=== PATIENT | female | born 2005 | race Caucasian/White ===

== ENCOUNTER 2025-05-26 00:51 | Emergency (ER) | payer MEDICAID ==
[~2025-05-26] VITALS: Ht 154.9 cm; Wt 68.2 kg
--- NOTE | 2025-05-26 01:04 | Physician Documentation ---
History of Present Illness ~ Stated Complaint: MED CLEARANCE Time Seen by MD: 01:00 OK to notify your PCP?: Yes Source: police, RN/MD, RN notes reviewed Mode of Arrival: Police Exam Limitations: clinical condition HPI Patient arrives screaming to the ER police at bedside for 5150. She was at a bar drinking. Apparently she tried to cut herself multiple locations inner thighs and legs. Tetanus is unknown. Patient was paranoid yelling at people. Started to run in some very bushes and has multiple scratches. Police brought her in she is requiring restraints fighting staff and spreading. Medication Reconciliation Allergies: Coded Allergies: No Known Allergies (Unverified , 05/26/25) Past Medical History Other Past Medical History: Unknown medical history unknown psychiatric history Alcohol Use: Heavy Unable to obtain complete PMH: altered mental status Review of Systems ROS Unable to evaluate Unable to obtain complete ROS: altered mental status Physical Exam Vital Signs: RN Vital Signs have been reviewed: Yes Physical Exam General: The patient is appearing and is in severe distress, and danger to self. Screaming, spitting at staff, smell of alcohol on breath Skin: Brooten, warm and dry with no cuts on her legs. HEENT: Head was normocephalic and atraumatic. Eyes - pupils are at 3 mm reactive. Dysconjugate gaze. Conjunctivae were nonicteric. The mouth and oropharynx were clear with moist mucous membranes. There were no pharyngeal exudates or erythema. Neck: Supple and nontender. There was no jugular venous distention, lymphadenopathy, thyromegaly or masses. Chest: Clear to auscultation bilaterally without wheezes, rales or rhonchi. No accessory muscle use. No dullness to percussion. Heart: Rate regular and rhythmic. S1, S2. No murmurs. Palpation of the chest wall was normal. No rubs or thrills. Abdomen: Soft, nontender and nondistended. Positive bowel sounds. No guarding or rebound. No hepatosplenomegaly or palpable masses. Extremities: 3 large multiple scratches/laceration on legs. Left thigh has three superficial scratches measuring at 25 cm each. Non suturable. Multiple scratch parks bilaterally lower extremities greater than the upper extremities all superficial Neurologic: Motorcensory in tact. Psychologic: In a frantic psychologic state. Danger to self and others. Progress Progress Note At noon patient is medically cleared for mental health treatment transport and evaluation. Results/Orders Reviewed/noted all lab results: Yes Results/Orders Orders - INEZ WATSON MD Med Rec (05/26/25 01:04) 1799.11 (05/26/25 01:04) Behavioral Restraints (05/26/25 01:04) Close Observation Level (05/26/25 01:04) Covid19 Binax Poc Result Entry (05/26/25 01:04) Substance Use Navigator (05/26/25 01:04) Regular Diet (05/26/25 Breakfast) Potassium Cl Sr Tablet (K-Dur Tablet) (05/26/25 06:40) Magnesium Oxide Tablet (Mag-Ox 400mg Tab (05/26/25 06:40) MG (05/26/25 06:36) Completed Orders - INEZ WATSON MD Diphenhydramine Inj (Benadryl Inj.) (05/26/25 01:00) Haloperidol Lact. (Haldol) (05/26/25 01:00) Midazolam 1 Mg/Ml 5ml Inj (Versed 1 Mg/M (05/26/25 01:05) Cbc/Diff (05/26/25 01:04) Hcg, Ur Ql (05/26/25 01:04) Drug Screen, Urine (05/26/25 01:04) Ethanol (05/26/25 01:04) TSH (05/26/25 01:04) BMP (05/26/25 01:04) Midazolam 5 Mg/Ml 2ml Inj (Versed 5 Mg/M (05/26/25 01:10) Ua With Microscopic (05/26/25 01:49) Medications Received in ER Medications (Trade) Dose Ordered Sig/Zeeshan Route PRN Reason Start Time Stop Time Status Last Admin Dose Admin (Benadryl inj.) 50 mg ONCE ONCE IM 05/26/25 01:00 05/26/25 01:01 DC 05/26/25 01:15 50 MG (Haldol) 10 mg ONCE ONCE IM 05/26/25 01:00 05/26/25 01:11 DC 05/26/25 01:15 10 MG (Versed 5 MG/ML 2ML inj) 10 mg ONCE ONCE IV 05/26/25 01:10 05/26/25 01:11 DC 05/26/25 01:15 10 MG Vital Signs 05/26/25 05/26/25 05/26/25 01:52 02:00 05:40 Temp 98.2 Pulse 84 70 Resp 16 16 18 B/P (MAP) 106/53 128/80 (96) Pulse Ox 99 99 Laboratory Tests Test 05/26/25 01:38 05/26/25 01:44 05/26/25 01:49 SARS-CoV-2 Antigen (Rapid) Negative White Blood Count 10.9 Red Blood Count 4.54 Hemoglobin 14.2 Hematocrit 42.3 Mean Corpuscular Volume 93.3 Mean Corpuscular Hemoglobin 31.3 H Mean Corpuscular Hemoglobin Concent 33.6 Red Cell Distribution Width 13.4 Platelet Count 417 Mean Platelet Volume 7.2 L Neutrophils (%) (Auto) 81.6 H Lymphocytes (%) (Auto) 11.7 L Monocytes (%) (Auto) 3.5 Eosinophils (%) (Auto) 2.5 Basophils (%) (Auto) 0.7 Neutrophils # (Auto) 8.9 H Lymphocytes # (Auto) 1.3 Monocytes # (Auto) 0.4 Eosinophils # (Auto) 0.3 Basophils # (Auto) 0.1 CBC Comment Sodium Level 147 H Potassium Level 3.2 L Chloride Level 110 H Carbon Dioxide Level 19.5 L Anion Gap 18 H Blood Urea Nitrogen 7 Creatinine 0.60 Estimated GFR/1.73 m2 > 90 BUN/Creatinine Ratio 11.7 Glucose Level 105 H Calcium Level 8.5 Albumin 4.0 Thyroid Stimulating Hormone (TSH) 1.55 Chemistry Comments Ethyl Alcohol Level 258 H Urine Specimen Description Straight cath Urine Color Straw Urine Clarity Clear Urine pH 6.0 Urine Specific [place] 1.025 Urine Protein 30 H Urine Glucose (UA) Negative Urine Ketones Negative Urine Occult Blood Small Urine Nitrite Negative Urine Bilirubin Negative Urine Urobilinogen 0.2 Urine Leukocyte Esterase Negative Urine RBC 0-2 Urine WBC 0-4 Urine Squamous Epithelial Cells Few Urine Bacteria None seen Urine Mucus None seen Volume Urine Centrifuged 10 ml Urine HCG, Qualitative Negative Urine Comment Urine Opiates Screen Negative Urine Methadone Screen Negative Urine Fentanyl Screen Negative Urine Barbiturates Screen Negative Urine Phencyclidine Screen Negative Urine Amphetamines Screen Negative Urine Benzodiazepines Screen Negative Urine Cocaine Screen Negative Urine Cannabinoids Screen Positive Drug Screen Comment Re-Evaluation Re-Evaluation : Re-Evaluation: Improved Progress Patient was seen and examined. Patient is given reassurance. The patient was found to have poor impulse control. This was the morning at 6:30 a.m.. Patient initially arrived hysterical screaming danger to others and self. Patient received chemical sedation and was placed in restraints to protect herself. Laboratory work was obtained. Her vitals were reassuring. Her laboratory work shows a normal CBC without leukocytosis infectious etiology meningitis or psychosis secondary to infection has been ruled out and unlikely. Chemistry patient's slightly dehydrated with elevated sodium of 147, as well as a low potassium of 3.2, magnesium was ordered, some mild acidosis with a CO2 of 19.5. TSH is reassuring within normal limits. HCG is negative tox screen is positive for marijuana alcohol level is 258. COVID is negative. Patient was then given potassium and magnesium oral medications given with a meal which will help both with her elevated sodium. As far as medical clearance for mental health. Patient's initial alcohol level at 1:00 a.m. was 258. She is a female although appears to be a heavy drinker based on her affect and presentation patient was calculated to have an alcohol level of 158 at 7:00 a.m. and an alcohol level of 58 at noon for which at that time the patient will be medically cleared for mental health evaluation management treatment and transportation if needed. Medical Decision Making Additional information obtaine: old records Findings Acute psychosis, infectious etiology was ruled out electrolyte abnormality was ruled out. Polysubstance drug abuse, Differential Dx:Considerations: Include: Alcohol abuse, Anxiety, Bipolar disorder, Conversion disorder, Depression, Encephaloathy, Personality disorder, Substance abuse, Suicidal, Other Departure Disposition: 30 STILL A PATIENT Impression: Primary Impression: Acute psychosis Additional Impression: Alcohol intoxication Qualified Codes: F10.929 - Alcohol use, unspecified with intoxication, unspecified Condition: Stable Discharge Instructions: Psychosis Additional Instructions: Follow up with mental health recommendation treatment Referrals: NO PRIMARY CARE PROVIDER (PCP) Education Educated: Patient Educated regarding: diagnosis, need for follow up, other Critical Care Note Total Time (mins): 35 Critical Care Note The very real possibility of a deterioration of this patient's condition required the highest level of my preparedness for sudden, emergent intervention. I provided critical care services, which included medication orders, frequent reevaluations of the patient's condition and response to treatment, ordering and reviewing test results, and discussing the case with various consultants. Excludes time spent performing separately billable procedures. The critical care time associated with the care of the patient was. 35 minutes, chemical sedation. Signature Scribe Signature: No scribed Attestation: The note accurately reflects work and decisions made by me.Inez Watson MD 05/26/25 01:04 The note accurately reflects work and decisions made by me.Inez Watson MD 01:04 INEZ WATSON MD May 26, 2025 01:04 EUGENIO WATSON May 26, 2025 01:21
[2025-05-26] MEDS: MIDAZolam 1 MG/ML 5ML VIAL IM ONE (01:09)
[2025-05-26] MEDS: MIDAZolam 5mg/ml 2ml vial IV ONE (01:15)
[2025-05-26] MEDS: haloperidol lactate 5mg/ml inj IM ONE (01:15)
[2025-05-26 02:03] LABS: MEAN PLATELET VOLUME 7.2 FL (7.4-10.4); RED CELL DISTRIBUTION WIDTH 13.4 % (11.5-14.5)
[2025-05-26 02:10] LABS: URINE HCG NEGATIVE (NEG)
[2025-05-26 02:14] LABS: LEUKOCYTE ESTERASE ,URINE NEGATIVE (Neg); NITRITES, URINE NEGATIVE (Neg); OCCULT BLOOD,URINE SMALL (Neg)
[2025-05-26 02:18] LABS: URINE AMPHETAMINE SCREEN NEGATIVE (Neg); URINE BARBITUATE SCREEN NEGATIVE (Neg); URINE BENZODIAZEPINES SCREEN NEGATIVE (Neg); URINE CANNABINOID SCREEN POSITIVE (Neg); URINE COCAINE SCREEN NEGATIVE (Neg); URINE METHADONE SCREEN NEGATIVE (Neg); URINE OPIATE SCREEN NEGATIVE (Neg); URINE PHENCYCLIDINE SCREEN NEGATIVE (Neg)
[2025-05-26 02:24] LABS: UA COLLECTION TYPE STRAIGHT CATH
[2025-05-26 02:25] LABS: MUCUS STRANDS NONE SEEN /LPF (Neg); SQUAMOUS EPITHELIAL CELL,UR FEW /LPF (FEW)
[2025-05-26 02:26] LABS: CREATININE 0.60 MG/DL (0.40-0.90); ETHANOL 258 MG/DL (<10); TOTAL CARBON DIOXIDE 19.5 MMOL/L (24-32); eCRCL 112 ML/MIN; eGFR > 90 ML/MIN
[2025-05-26] MEDS: potassium Cl 20 mEq SR tablet PO ONE (12:03)
[2025-05-26 13:44] VITALS: BP 126/80; PULSE 91; RESP 15; TEMP 97.8; O2SAT 100
== END 2025-05-26 13:50 | disposition home or self-care (01) ==
LOC: ER 00:51
DX: F23 Brief psychotic disorder (principal); F10.129 Alcohol abuse with intoxication, unspecified; Y90.9 Presence of alcohol in blood, level not specified; Z20.822 Contact with and (suspected) exposure to COVID-19; Z79.899 Other long term (current) drug therapy
CPT/HCPCS: 36415; 80048; 80305; 80320; 81001; 81025; 83735; 84443; 85025; 87811; 96372; 96374; 99291; J1200; J1630; J2250; C1758